=== PATIENT | male | born 1970 | race Caucasian/White ===

== ENCOUNTER 2019-09-29 10:37 | Emergency (ER) | payer OTHER ==
[~2019-09-29] VITALS: Ht 175.3 cm; Wt 155.0 kg
[2019-09-29 11:05] LABS: BASOPHILS # (AUTO) 0.06 x10^3/uL (0-0.1); BASOPHILS % (AUTO) 1 % (0-1); EOSINOPHILS # (AUTO) 0.04 x10^3/uL (0-0.4); EOSINOPHILS % (AUTO) 1 % (1-7); LYMPHOCYTES # (AUTO) 1.31 x10^3/uL (1-3.4); LYMPHOCYTES % (AUTO) 16 % (22-44); MD NO; MEAN CORPUSCULAR HGB CONC 33.6 g/dL (33.2-36.2); MEAN CORPUSCULAR VOLUME 89.3 fL (81-97); MEAN PLATELET VOLUME 7.6 fL (7.4-10.4); MONOCYTES # (AUTO) 0.43 x10^3/uL (0.2-0.8); MONOCYTES % (AUTO) 5 % (2-9); NEUTROPHILS # (AUTO) 6.35 x10^3/uL (1.8-6.8); NEUTROPHILS % (AUTO) 78 % (42-75); PLATELET COUNT 293 x10^3/uL (130-400); RED BLOOD COUNT 5.01 x10^6/uL (4.38-5.82); RED CELL DISTRIBUTION WIDTH 13.2 % (9.4-14.8)
[2019-09-29 11:17] LABS: ALBUMIN 3.6 g/dL (3.4-5.0); ANION GAP 5 mmol/L (5-15); CALCIUM 8.8 mg/dL (8.5-10.1); CHLORIDE 107 mmol/L (98-107); CREATININE 0.92 mg/dL (0.7-1.3)
[2019-09-29 11:20] LABS: TROPONIN I < 0.015 ng/mL (0.000-0.045)
--- NOTE | 2019-09-29 12:50 | NUR ---
THIS IS A 48 YO M W/ C/O SOB AND RT LEG EDEMA X2 DAYS. PT STATES HE HAD A FARHAD HORSEX1 WEEK. AND NOTICED THE SWELLING AFTER THE PAIN WENT AWAY. PT STATES SOB MAY BE DUE TO ANXIETY. PT REPORTS LOSING WEIGHT RECENTLY. VS STABLE. NADN. RESP EVEN AND UNLABORED. CALL LIGHT IN REACH. DENIES FURTHER NEEDS AT THIS TIME.
[2019-09-29 12:54] VITALS: BP 138/97
--- NOTE | 2019-09-29 13:39 | NUR ---
PT TO RAD.
--- NOTE | 2019-09-29 14:00 | NUR ---
PT HAD PANIC ATTACK WHILE IN CT. REFUSED TO COMPLETE TEST. EDUCATED ON PURPOSE OF TEST AND RISK OF NOT HAVING IT PERFORMED. PROVIDER UPDATED.
--- NOTE | 2019-09-29 14:16 | NUR ---
Patient given discharge instructions and they have confirmed that they understand the instructions. Patient ambulatory with steady gait.
== END 2019-09-29 14:17 | disposition home or self-care (01) ==
LOC: ED 13:21
DX: L03.115 Cellulitis of right lower limb (principal); K21.9 Gastro-esophageal reflux disease without esophagitis
CPT/HCPCS: 36415; 71045; 80048; 82040; 84484; 85025; 93005; 99284

== ENCOUNTER 2019-10-13 12:17 | Emergency (ER) | payer SELFPAY ==
[~2019-10-13] VITALS: Ht 175.3 cm; Wt 153.8 kg
[2019-10-13] MEDS ORDERED: LIDOCAINE 1%-EPI 1:100K, 20ML SQ ONE (13:30)
[2019-10-13] MEDS ORDERED: SODIUM CHLORIDE FLUSH 10ML SYR IVF ONE (13:30)
[2019-10-13] MEDS ORDERED: LORazepam 2 MG/ML, 1ML ONE (13:38)
[2019-10-13 13:43] LABS: BASOPHILS # (AUTO) 0.06 x10^3/uL (0-0.1); BASOPHILS % (AUTO) 1 % (0-1); EOSINOPHILS # (AUTO) 0.15 x10^3/uL (0-0.4); EOSINOPHILS % (AUTO) 1 % (1-7); LYMPHOCYTES # (AUTO) 1.64 x10^3/uL (1-3.4); LYMPHOCYTES % (AUTO) 14 % (22-44); MD NO; MEAN CORPUSCULAR HEMOGLOBIN 29.9 pg (27.5-34.5); MEAN CORPUSCULAR HGB CONC 33.3 g/dL (33.2-36.2); MEAN CORPUSCULAR VOLUME 89.6 fL (81-97); MEAN PLATELET VOLUME 7.3 fL (7.4-10.4); MONOCYTES % (AUTO) 8 % (2-9); NEUTROPHILS # (AUTO) 8.91 x10^3/uL (1.8-6.8); NEUTROPHILS % (AUTO) 76 % (42-75); PLATELET COUNT 329 x10^3/uL (130-400); RED BLOOD COUNT 4.73 x10^6/uL (4.38-5.82); RED CELL DISTRIBUTION WIDTH 12.8 % (9.4-14.8)
[2019-10-13 13:54] LABS: ALANINE AMINOTRANSFERASE 36 U/L (12-78); ALBUMIN 3.2 g/dL (3.4-5.0); ANION GAP 5 mmol/L (5-15); CALCIUM 8.9 mg/dL (8.5-10.1); CHLORIDE 106 mmol/L (98-107); CREATININE 0.88 mg/dL (0.7-1.3)
[2019-10-13 13:56] LABS: ALKALINE PHOSPHATASE 84 U/L (45-117); BILIRUBIN,TOTAL 0.5 mg/dL (0.2-1.0); TOTAL PROTEIN 7.1 g/dL (6.4-8.2)
--- NOTE | 2019-10-13 13:57 | NUR ---
PT RESTING IN [facility] IN. AWAITING CT
[2019-10-13] MEDS ORDERED: LORazepam 2 MG/ML, 1ML IVPush ONE (14:00)
[2019-10-13] MEDS ORDERED: OMNIPAQUE 350 MG/ML, 150 ML BOTTLE ONE (14:44)
[2019-10-13] MEDS ORDERED: LIDOCAINE 1%-EPI 1:100K, 20ML ONE (14:52)
[2019-10-13 16:38] VITALS: BP 153/100
--- NOTE | 2019-10-13 16:38 | NUR ---
PT RESTING IN [facility]. MD IS BEDSIDE
== END 2019-10-13 17:03 | disposition home or self-care (01) ==
LOC: ED 15:01
DX: K60.4 Rectal fistula (principal)
CPT/HCPCS: 36415; 72193; 80053; 83605; 85025; 96374; 99285; J2060; Q9967; 99284

== ENCOUNTER 2020-03-22 05:39 | Day surgery (SDC) | payer MEDICAID ==
[2020-03-19 08:44] VITALS: BP 135/92
[~2020-03-22] VITALS: Ht 175.3 cm; Wt 151.0 kg
[~2020-03-22 05:39] MED LIST: AMOX1TAB61 PO; CETI10TA26 PO; ESOM20CA PO; LACT1CAP35 PO; METR500T PO
[2020-03-22] MEDS ORDERED: LACTATED RINGERS 1,000 ML IV SCH (06:36)
[2020-03-22] MEDS ORDERED: CHLORHEXIDINE 15 ML UDC MM ONE (07:00)
[2020-03-22] MEDS ORDERED: MAGNESIUM SULFATE 1 GM/2 ML ONE (07:27)
[2020-03-22] MEDS ORDERED: LIDOCAINE 1%, 20ML ONE (07:27)
[2020-03-22] MEDS ORDERED: LIDOCAINE-MPF 2% ,5ML ONE (07:32)
[2020-03-22] MEDS ORDERED: ROCURONIUM 10MG/ML,5ML ONE (07:32)
[2020-03-22] MEDS ORDERED: MIDAZOLAM 1 MG/ML, 5ML ONE (07:32)
[2020-03-22] MEDS ORDERED: PROPOFOL 10 MG/ML, 20ML ONE (07:32)
[2020-03-22] MEDS ORDERED: DEXAMETHASONE 4 MG/ML, 1ML ONE (07:32)
[2020-03-22] MEDS ORDERED: GLYCOPYRROLATE 0.2MG/1ML, 5ML ONE (07:32)
[2020-03-22] MEDS ORDERED: CEFAZOLIN 1,000 MG ONE (07:48)
[2020-03-22] MEDS ORDERED: HALOPERIDOL 5 MG/ML IV PRN (08:00)
[2020-03-22] MEDS ORDERED: LORazepam 2 MG/ML, 1ML IVPush PRN (08:00)
[2020-03-22] MEDS ORDERED: EPHEDRINE 50 MG/ML, 1ML IVPush PRN (08:00)
[2020-03-22] MEDS ORDERED: hydrALAzine 20 MG/ML, 1ML IV PRN (08:00)
[2020-03-22] MEDS ORDERED: KETOROLAC 30 MG/1 ML IVPush PRN (08:00)
[2020-03-22] MEDS ORDERED: MEPERIDINE/PF 25MG/0.5ML IVPush PRN (08:00)
[2020-03-22] MEDS ORDERED: MIDAZOLAM 1 MG/ML, 2ML IV PRN (08:00)
[2020-03-22] MEDS ORDERED: DIAZEPAM 5 MG/ML, 2ML IVPush PRN (08:00)
[2020-03-22] MEDS ORDERED: EPHEDRINE 50 MG/ML, 1ML IM PRN (08:00)
[2020-03-22] MEDS ORDERED: OXYcodone 5 MG/5 ML ORAL.SOL UDC PO PRN (08:00)
[2020-03-22] MEDS ORDERED: HYDROcodone/APAP 7.5-325MG/15ML UDC PO PRN (08:00)
[2020-03-22] MEDS ORDERED: LABETALOL 5MG/ML, 20ML IV PRN (08:00)
[2020-03-22] MEDS ORDERED: ONDANSETRON 2MG/ML, 2ML IVPush PRN (08:00)
[2020-03-22] MEDS ORDERED: METOCLOPRAMIDE 5 MG/ML, 2ML IVPush PRN (08:00)
[2020-03-22] MEDS ORDERED: METHOCARBAMOL 1,000 MG in DEXTROSE 5% 100 ML IV PRN (08:00)
[2020-03-22] MEDS ORDERED: HYDROmorphone 1 MG/ML, 1ML INJ IVPush PRN (08:00)
[2020-03-22] MEDS ORDERED: FENTANYL PF 100 MCG/2ML IV PRN (08:00)
[2020-03-22] MEDS ORDERED: ALBUTEROL/IPRATROPIUM 2.5MG/0.5MG, 3 ML NPPB PRN (08:00)
[2020-03-22] MEDS ORDERED: DIPHENHYDRAMINE 50 MG/ML, 1ML IVPush PRN (08:00)
[2020-03-22] MEDS ORDERED: BUPIVACAINE/PF-EPI 0.5% 1:200K INFIL ONE (08:14)
[2020-03-22] MEDS ORDERED: ACETAMINOPHEN 650 MG/20.3 ML UDC ONE (09:15)
[2020-03-22] MEDS ORDERED: MEPERIDINE/PF 25MG/ML,1ML ONE (09:16)
[2020-03-22] MEDS ORDERED: OXYcodone 5 MG/5 ML ORAL.SOL UDC ONE (09:16)
[2020-03-22] MEDS ORDERED: ACETAMINOPHEN 650 MG/20.3 ML UDC PO PRN (09:30)
[2020-03-22] MEDS ORDERED: FENTANYL PF 100 MCG/2ML ONE (09:34)
[2020-03-22] MEDS ORDERED: ONDANSETRON 2MG/ML, 2ML ONE (09:41)
== END 2020-03-22 12:35 | disposition home or self-care (01) ==
LOC: OUT 05:39
PROVIDERS: ATTEND Surgery
DX: K60.3 Anal fistula (principal); Z11.59 Encounter for screening for other viral diseases; L98.411 Non-pressure chronic ulcer of buttock limited to breakdown of skin; K21.9 Gastro-esophageal reflux disease without esophagitis; E66.01 Morbid (severe) obesity due to excess calories; Z68.42 Body mass index [BMI] 45.0-49.9, adult; Z79.899 Other long term (current) drug therapy
CPT/HCPCS: 36415; 46020; 87635; J0690; J1100; J1885; J2175; J2250; J2405; J2704; J3010; J3475; J7120

== ENCOUNTER → 2020-06-18 | Outpatient (CLI) | payer MEDICAID ==
[~2020-06-18] MED LIST changes: -CETI10TA26 PO; +CETI10TA76 PO
== END | disposition home or self-care (01) ==
LOC: STAR 08:00 → EDSTATUS 06-21 07:30
PROVIDERS: ATTEND Surgery
DX: Z01.812 Encounter for preprocedural laboratory examination (principal); Z20.828 Contact with and (suspected) exposure to other viral communicable diseases
CPT/HCPCS: 36415; 87635

== ENCOUNTER 2020-07-12 05:42 | Day surgery (SDC) | payer MEDICAID ==
[~2020-07-12] VITALS: Ht 175.3 cm; Wt 151.1 kg
[2020-07-12 06:29] VITALS: BP 134/88
[2020-07-12] MEDS ORDERED: LACTATED RINGERS 1,000 ML IV SCH (06:30)
[2020-07-12] MEDS ORDERED: CHLORHEXIDINE 15 ML UDC MM ONE (06:30)
[2020-07-12] MEDS ORDERED: CBD TINCTURE (06:40)
[2020-07-12] MEDS ORDERED: COQ10 (06:40)
[2020-07-12] MEDS ORDERED: KRIL1CAP22 PEG (06:40)
[2020-07-12] MEDS ORDERED: HYDROCORTISONE (06:40)
[2020-07-12] MEDS ORDERED: BENADRYL (06:40)
[2020-07-12] MEDS ORDERED: VITAMIN D (06:40)
[2020-07-12] MEDS ORDERED: LORA10TA75 PO (06:40)
[2020-07-12] MEDS ORDERED: CALCIUM (06:40)
[2020-07-12] MEDS ORDERED: MULTIVITAMIN (06:40)
[2020-07-12] MEDS ORDERED: MAGNESIUM (06:40)
[2020-07-12] MEDS ORDERED: ASPI81TA45 PO (06:40)
[2020-07-12] MEDS ORDERED: ZINC (06:40)
[2020-07-12] MEDS ORDERED: LABETALOL 5MG/ML, 20ML ONE (07:07)
[2020-07-12] MEDS ORDERED: LIDOCAINE/PF 1%, 30ML ONE (07:07)
[2020-07-12] MEDS ORDERED: MAGNESIUM SULFATE 1 GM/2 ML ONE (07:07)
[2020-07-12] MEDS ORDERED: PROPOFOL 10 MG/ML, 20ML ONE (07:13)
[2020-07-12] MEDS ORDERED: ROCURONIUM 10MG/ML,5ML ONE (07:13)
[2020-07-12] MEDS ORDERED: MIDAZOLAM 1 MG/ML, 5ML ONE (07:13)
[2020-07-12] MEDS ORDERED: GLYCOPYRROLATE 0.2MG/1ML, 5ML ONE (07:13)
[2020-07-12] MEDS ORDERED: LIDOCAINE-MPF 2% ,5ML ONE (07:13)
[2020-07-12] MEDS ORDERED: DEXAMETHASONE 4 MG/ML, 1ML ONE (07:13)
[2020-07-12] MEDS ORDERED: BUPIVACAINE/PF 0.5% ONE (07:24)
[2020-07-12] MEDS ORDERED: EPINEPHRINE 1 MG/ML, 1ML ONE (07:24)
[2020-07-12] MEDS ORDERED: LABETALOL 5MG/ML, 20ML IV PRN (07:30)
[2020-07-12] MEDS ORDERED: HYDROcodone/APAP 7.5-325MG/15ML UDC PO PRN (07:30)
[2020-07-12] MEDS ORDERED: EPHEDRINE 50 MG/ML, 1ML IM PRN (07:30)
[2020-07-12] MEDS ORDERED: METHOCARBAMOL 1,000 MG in DEXTROSE 5% 100 ML IV PRN (07:30)
[2020-07-12] MEDS ORDERED: FENTANYL PF 100 MCG/2ML IV PRN (07:30)
[2020-07-12] MEDS ORDERED: MEPERIDINE/PF 25MG/0.5ML IVPush PRN (07:30)
[2020-07-12] MEDS ORDERED: LORazepam 2 MG/ML, 1ML IVPush PRN (07:30)
[2020-07-12] MEDS ORDERED: EPHEDRINE 50 MG/ML, 1ML IVPush PRN (07:30)
[2020-07-12] MEDS ORDERED: HALOPERIDOL 5 MG/ML IV PRN (07:30)
[2020-07-12] MEDS ORDERED: KETOROLAC 30 MG/1 ML IM PRN (07:30)
[2020-07-12] MEDS ORDERED: ALBUTEROL/IPRATROPIUM 2.5MG/0.5MG, 3 ML NPPB PRN (07:30)
[2020-07-12] MEDS ORDERED: DIPHENHYDRAMINE 50 MG/ML, 1ML IVPush PRN (07:30)
[2020-07-12] MEDS ORDERED: ONDANSETRON 2MG/ML, 2ML IVPush PRN (07:30)
[2020-07-12] MEDS ORDERED: OXYcodone 5 MG/5 ML ORAL.SOL UDC PO PRN (07:30)
[2020-07-12] MEDS ORDERED: hydrALAzine 20 MG/ML, 1ML IV PRN (07:30)
[2020-07-12] MEDS ORDERED: HYDROmorphone 1 MG/ML, 1ML INJ IVPush PRN (07:30)
[2020-07-12] MEDS ORDERED: DIAZEPAM 5 MG/ML, 2ML IVPush PRN (07:30)
[2020-07-12] MEDS ORDERED: MIDAZOLAM 1 MG/ML, 2ML IV PRN (07:30)
[2020-07-12] MEDS ORDERED: CEFOTETAN 2 GM ONE (08:17)
[2020-07-12] MEDS ORDERED: BUPIVACAINE/PF-EPI 0.5% 1:200K INFIL ONE (09:02)
== END 2020-07-12 11:05 | disposition home or self-care (01) ==
LOC: OUT 05:42
PROVIDERS: ATTEND Surgery
DX: K60.3 Anal fistula (principal); Z20.828 Contact with and (suspected) exposure to other viral communicable diseases; K21.9 Gastro-esophageal reflux disease without esophagitis; E66.01 Morbid (severe) obesity due to excess calories; Z68.42 Body mass index [BMI] 45.0-49.9, adult; Z79.899 Other long term (current) drug therapy
CPT/HCPCS: 46707; 87635; C1763; J0171; J1100; J2250; J2704; J3475; J7120